=== PATIENT | female | born 1965 | race Caucasian/White ===

== ENCOUNTER → 2017-02-19 | Outpatient (CLI) | payer OTHER ==
[~2017-02-19] MED LIST: CELEXA20 MG PO; MOTRIN 400MG.400 MG PO; NEURONTIN 300M300 MG PO; NORCO1 TAB PO; SYNTHROID 0.0.125 MG PO; TRAZODONE50 MG PO
--- NOTE | 2017-02-19 12:40 | RADIOLOGY REPORT PS360 ---
KNEE-3 VIEWS-RT HISTORY: RT KNEE EFFUSION, RT KNEE PAIN ORDERING PHYSICIAN: Dilma ISSA PATIENT AGE: 51 years COMPARISON: None FINDINGS: No fracture or dislocation. No lytic or blastic change. Normal mineralization. There is narrowing of the lateral joint space. No other significant anomalies are evident. No fracture or dislocation. IMPRESSION: Narrowing of the lateral joint space which may be seen with osteoarthritis.
== END ==
LOC: RAD 12:15
DX: M25.561 Pain in right knee (principal); M25.461 Effusion, right knee